=== PATIENT | female | born 2000 | race Caucasian/White ===

== ENCOUNTER 2020-05-24 21:54 | Emergency (ER) | payer BC, OTHER ==
[~2020-05-24] VITALS: Ht 160 cm; Wt 65.2 kg
[2020-05-24 22:16] VITALS: BP 122/78
--- NOTE | 2020-05-24 22:27 | PHYS DOC ---
General Adult EDM: Chief Complaint: HEAD INJURY/TRAUMA HPI: HPI: "..I was working this morning.,.,.. and I went to step on a step stool and it slid... I fell and hit the Lt side of my head... and my Lt elbow.. .. and back.. it did not knock me out... but I was confused afterwards.. doing things that did not make sense.. I was seen at the Work comp. clinic and they told me to go to any ED and get a CT of my head... ... I still got a head ache.. my neck still hurts... my back still . and my Lt elbow is still sore..." Patient is a 20 year old female who presents with above hx and complaints of fall at work- [employer]. At approximately 0700 hrs. Patient was seen at [facility] for evaluation of her injuries at work. Patient was seen approximately 1858 hrs. patient had a 3 view cervical spine and thoracic x-ray. Results are unknown. Patient told to present to a emergency department for a CT of head. Patient reportedly was to be and a immediate transfer to a hospital emergency room. Patient was given RICE instructions and to return in 2 days. Patient was to return to work with restrictions. Patient was evaluated by kristin Birch at approximately 1800 hrs[address] Patient presents for CT of her head for concussion. Patient still has some bleeding at left ear at site of ear studs. Patient still has some upper neck tenderness. Patient still has some complaints of back pain at site of contusion. The left elbow has a small abrasion and contusion. Patient denies history of previous head injury. Patient normally healthy. Up-to-date with standard vaccinations. Patient thinks tetanus may be in excess of 5 years. Patient has had no recent travel. No specific specific ill contacts. She is accompanied with her parents who states she appears at her normal baseline mentation.. Review of Systems: Review of Systems: Constitutional: Denies fever or chills Eyes: Denies change in visual acuity HENT: Denies nasal congestion or sore throat. Complains of contusion to left ear and bleeding at ears studs. Complains of neck pain. Respiratory: Denies cough or shortness of breath Cardiovascular: Denies chest pain or edema GI: Denies abdominal pain, nausea, vomiting, bloody stools or diarrhea : Denies dysuria Musculoskeletal: Complains of back pain and of left elbow pain Integument: Denies rash Neurologic: Complains of headache,. Denies focal weakness or sensory changes Endocrine: Denies polyuria or polydipsia Lymphatic: Denies swollen glands Psychiatric: Denies depression or anxiety Family History: Family History: Noncontributory to presentation Current Medications: Current Meds: See nursing for home meds Allergies: Allergies: No known drug allergies Physical Exam: PE: Constitutional: Well developed, well nourished, or at acute distress, non-toxic appearance. [] HENT: Normocephalic, contusion to the left ear and some bleeding at ears studs, TMs are intact bilateral external ears normal, oropharynx moist, no oral exudates, nose normal. [] Eyes: PERRLA, EOMI, conjunctiva normal, no discharge. No field loss. Fundi margins appear to be clear. Slight 3 beat clonus on lateral gaze to the right. Neck: Normal range of motion, upper cervical paraspinal muscle tenderness, supple, no stridor. [] Cardiovascular:Heart rate regular rhythm, no murmur [] Lungs & Thorax: Bilateral breath sounds equal at apex on auscultation [] Abdomen: Bowel sounds normal, soft, no tenderness, no masses, no pulsatile masses. [] Skin: Warm, dry, no erythema, no rash. Small abrasion left elbow Back: Mid back tenderness at area of contusion left side,, no CVA tenderness. [] Extremities: Left elbow tenderness, no cyanosis, no clubbing, ROM intact, left elbow edema. [] Neurologic: Alert and oriented X 3, moves all extremities on request, does have distal sensory, DTRs +2 at patella and brachial. [employer] equal. Right-hand dominant., no focal deficits noted. [] Air conduction more than bone conduction. There was some lateralization to right with a 128 fork. [id number] good. Distal vibratory intact. Psychologic: Affect anxious,, judgement normal, mood normal. [] EKG: EKG: [] Radiology/Procedures: Radiology/Procedures: [][address] [address] IMAGING REPORT Signed PATIENT: MATIAS CASTANON ACCOUNT: [id number] : 2000 LOCATION: ER AGE: 20 SEX: F EXAM STATUS: PRE ER ORD. PHYSICIAN: TRACY CACERES MD REASON: Fall, head injury, neck injury PROCEDURE: CT HEAD AND CERVICAL SPINE WO CT head without contrast: Reason for examination: Fell with head and neck injury. Helical images were obtained through the brain. No contrast was administered. Ventricular systems are symmetric and not dilated. No midline shift is seen. There is no evidence of intracranial hemorrhage, infarct, mass or edema. No abnormalities of seen at the orbits. The paranasal sinuses and mastoid air cells are clear. No acute abnormality seen in the skull. IMPRESSION: No acute intracranial abnormality evident. CT cervical spine without contrast: Helical images were obtained through the cervical spine from skull base through the thoracic apices with no contrast administered. Reconstruction was performed in sagittal and coronal planes. The C1 ring is intact. The odontoid process appears to be intact and normally centered between the lateral masses of C1. The vertebral bodies of the cervical spine are normally aligned anteriorly and posteriorly. No acute fracture or subluxation is seen. Posterior elements are intact. The intervertebral disc heights are maintained. Prevertebral soft tissues are normal. There is no spinal stenosis. Muscular bundles appear symmetric. IMPRESSION: No acute abnormality evident in the cervical spine. Exposure: One or more of the following individualized dose reduction techniques were utilized for this examination: 1. Automated exposure control 2. Adjustment of the mA and/or kV according to patient size 3. Use of iterative reconstruction technique. Electronically signed by: Julian Guerrero MD (05/24/2020 11:13 PM) [facility] DICTATED AND SIGNED BY: JULIAN GUERRERO MD DATE: 05/24/20 [id number] CC: TRACY CACERES MD ~MTH0 0 Heart Score: C/O Chest Pain: N/A Risk Factors: Risk Factors: DM, Current or recent (<one month) smoker, HTN, HLP, family history of CAD, obesity. Risk Scores: Score 0 - 3: 2.5% MACE over next 6 weeks - Discharge Home Score 4 - 6: 20.3% MACE over next 6 weeks - Admit for Clinical Observation Score 7 - 10: 72.7% MACE over next 6 weeks - Early Invasive Strategies Course & Med Decision Making: Course & Med Decision Making Pertinent Labs and Imaging studies reviewed. (See chart for details) Patient use ice packs as needed. Rest. Take Tylenol for pain for the next couple days. Avoid NSAIDs for 2 days. May advance to NSAIDs after 2 days. If patient vomits more than twice must have reexam tonight. Patient keep follow-up with Workmen's Comp. Patient does have findings consistent with concussion. Avoid activities where she may have repeat head injury until follow-up with her primary care and Workmen's Comp. Apply Polysporin to left elbow abrasion 4 times a day. Monitor for infection. Patient return if any concerns. Patient discharged to care of her. Parents. If concerns awaken patient every 2 hours. Impression: 1. Fall from step stool 2. Contusions to left ear, left elbow, back 3. Clinical concussion [] Dragon Disclaimer: Dragon Disclaimer: This electronic medical record was generated, in whole or in part, using a voice recognition dictation system. Dragon Disclaimer This chart was dictated in whole or in part using Voice Recognition software in a busy, high-work load, and often noisy Emergency Department environment. It may contain unintended and wholly unrecognized errors or omissions. TRACY CACERES MD May 24, 2020 22:27
[2020-05-24] MEDS ORDERED: TETANUS AND DIPHTHERIA TOX/PF 0.5 ML VIAL. VAX IM ONE (22:30)
--- NOTE | 2020-05-24 23:16 | RAD ---
CT head without contrast: Reason for examination: Fell with head and neck injury. Helical images were obtained through the brain. No contrast was administered. Ventricular systems are symmetric and not dilated. No midline shift is seen. There is no evidence of intracranial hemorrhage, infarct, mass or edema. No abnormalities of seen at the orbits. The paranasa l sinuses and mastoid air cells are clear. No acute abnormality seen in the skull. IMPRESSION: No acute intracranial abnormality evident. CT cervical spine without contrast: Helical images were obtained through the cervical spine from skull base through the thoracic apices w ith no contrast administered. Reconstruction was performed in sagittal and coronal planes. The C1 ring is intact. The odontoid process appears to be intact and normally centered between the la teral masses of C1. The vertebral bodies of the cervical spine are normally aligned anteriorly and po steriorly. No acute fracture or subluxation is seen. Posterior elements are intact. The intervertebra l disc heights are maintained. Prevertebral soft tissues are normal. There is no spinal stenosis. Mus cular bundles appear symmetric. IMPRESSION: No acute abnormality evident in the cervical spine. Exposure: One or more of the following individualized dose reduction techniques were utilized for thi s examination: 1. Automated exposure control 2. Adjustment of the mA and/or kV according to patient size 3. Use of iterative reconstruction technique. Electronically signed by: Cha Jessica MD (05/24/2020 11:13 PM) [facility]
== END 2020-05-24 23:45 | disposition home or self-care (01) ==
LOC: ER 21:54
DX: S06.0X9A Concussion with loss of consciousness of unspecified duration, initial encounter (principal); S00.432A Contusion of left ear, initial encounter; S50.02XA Contusion of left elbow, initial encounter; S20.224A Contusion of middle back wall of thorax, initial encounter; W08.XXXA Fall from other furniture, initial encounter; Y93.89 Activity, other specified; Y92.89 Other specified places as the place of occurrence of the external cause; Y99.8 Other external cause status
CPT/HCPCS: 70450; 72125; 81025; 90471; 90714; 99285-25